=== PATIENT | female | born 1975 | race Caucasian/White ===

== ENCOUNTER → 2020-06-21 | Outpatient (CLI) | payer BC, MEDICARE ==
[2020-06-21 13:05] VITALS: BP 122/85; PULSE 84; RESP 16; TEMP 98.5
--- NOTE | 2020-06-21 13:25 | P.GSHP ---
History of Present Illness H&P Date: 06/21/20 Chief Complaint: fullness right breast Carlota is a 44 year old white female with a fullness in her right breast which she has noticed since May 2020. She subsequently had a bilateral diagnostic mammogram which was benign BIRADS 2. Therefore was has not changed. She states it is painful. The pain is described as aching in nature. It is not cyclical, and nothing makes it better or worse. She is not complaining of any nipple discharge or skin changes. She had a breast reduction at the age of 15. Is not complaining of any infection or trauma the breast. Family history: maternal grandmother: ovarian cancer maternal grandfather: lung cancer paternal grandmother: breast cancer paternal grandfather: skin cancer metastatic paternal aunt: pancreatic cancer paternal aunt: colon cancer maternal cousin: cervical cancer Hormonal history: menarche: 12 , 4 miscarriages, breast fed: no, age at first live : 23 hysterectomy at 29 left one ovary, done for pre cancer on conization she is told she is perimenopausal BCP: depo hormones: none Surgical history: Hysterectomy 1 ovary removed Tubal ligation Novasure prior to hysterectomy Medical History: depression Social History: Nicotine: 1/2 PPD alcohol: occasional drugs: Marijuana occasional - Constitutional Constitutional: Reports sweats - EENT Eyes: denies blurred vision, denies pain Ears: deny: decreased hearing, tinnitus Ears, nose, mouth and throat: Denies headache, Denies sore throat - Breasts Breasts: bilateral: as per HPI - Cardiovascular Cardiovascular: Denies chest pain, Denies shortness of breath - Respiratory Respiratory: Denies cough, Denies 7 - Gastrointestinal Gastrointestinal: Denies abdominal pain, Denies diarrhea, Denies nausea, Denies vomiting - Genitourinary (Female) Genitourinary: Denies dysuria, Denies hematuria - Menstruation Menstruation: Reports post hysterectomy - Musculoskeletal Comment: 9 knee surgeries - Integumentary Integumentary: Reports pruritus - Neurological Neurological: Denies numbness, Denies weakness - Psychiatric Psychiatric: Reports depression - Endocrine Endocrine: Reports fatigue, Reports weight change - Hematologic/Lymphatic Comment: none - Allergic/Immunologic Allergic/Immunologic: Reports seasonal allergies Past Medical History Past Medical History: Asthma Additional Past Medical History / Comment(s): depression History of Any Multi-Drug Resistant Organisms: None Reported Past Surgical History: Breast Surgery, Cholecystectomy, Hysterectomy, Orthopedic Surgery Additional Past Surgical History / Comment(s): colonoscopy Past Anesthesia/Blood Transfusion Reactions: No Reported Reaction Past Psychological History: Depression Smoking Status: Current every day smoker Past Alcohol Use History: None Reported Past Drug Use History: None Reported Medications and Allergies Home Medications Medication Instructions Recorded Confirmed Type DULoxetine HCL [Cymbalta] 60 mg PO DAILY 09/27/14 06/21/20 History Dextroamphetamine/Amphetamine 25 mg PO QAM 09/27/14 06/21/20 History [Adderall Xr] Allergies Allergy/AdvReac Type Severity Reaction Status Date / Time erythromycin base AdvReac Rash/Hives Verified 06/21/20 12:54 Surgical - Exam Vital Signs Temp Pulse Resp BP Pulse Ox 98.5 F 84 16 122/85 97 06/21/20 12:56 06/21/20 12:56 06/21/20 12:56 06/21/20 12:56 06/21/20 12:56 BMI 28.4 - General well developed, well nourished, no distress - Eyes normal ocular movement - ENT no hearing loss - Neck no masses, trachea midline - Respiratory normal respiratory effort, clear to auscultation - Cardiovascular Rhythm: regular Heart Sounds: normal: S1, S2 - Abdomen Abdomen: soft, non tender, no guarding, no rigid, no rebound - Integumentary normal turgor - Neurologic no disoriented, no combative - Musculoskeletal normal gait, normal posture - Psychiatric oriented to time, oriented to person, oriented to place, speech is normal, memory intact breast exam: BRA: 38DD inspection: Well-healed scars bilaterally from reduction mammoplasties Palpation: Right breast: Multiple positional exam fibrocystic changes, some increased fu llness in the lateral inferior aspect which is somewhat nodular in nature, this appears to be consistent with lipomatous tissue and fibrocystic breast changes Right axilla: No adenopathy of concern Left breast: Well-healed scars from prior mammoplasty fibrocystic changes, no dominant masses or nodules of concern Left axilla: No adenopathy of concern Results mammogram reviewed Assessment and Plan Assessment: Impression: 1. Fibrocystic breast changes bilateral 2. Fullness of the right breast inferior lateral aspect 3. Depression 4. Prior surgery right knee 5. Strong family history of cancer 6. Perimenopausal/hot flashes Plan: 1. Targeted ultrasound of palpable area in the right breast 2. Follow-up after targeted ultrasound if nothing is seen for biopsy of palpable lesion CC: Dr. Lewis Gamboa encounter 30 minutes, > 50% of time in planning and counselling
--- NOTE | 2020-06-21 14:01 | P.PN ---
Progress Note - Text Progress Note Date: 06/21/20 Carlota underwent a targeted ultrasound of the area of concern in the right breast. This revealed a lesion most consistent with a lipoma. After discussion with radiology the option of ultrasound-guided core biopsy versus six-month follow-up was given. The patient wishes a core biopsy to be obtained secondary to her strong family history of cancer. Risk and benefits of the procedure are discussed with the patient. She understands and wishes to proceed.
--- NOTE | 2020-06-22 10:15 | USB ---
Reason for exam: clinical finding. Indicated problem(s): palpable abnormality in the right breast. Physical Findings: Breast exam performed by Dr. Forrest. US Breast Limited RT Right limited breast ultrasound including focal area of concern, retroareolar and axilla demonstrates a 0.7 x 0.4 x 0.7cm hyperechoic lesion at 8 o'clock. These results were verbally communicated with the patient and result sheet given to the patient on 06/21/20. ASSESSMENT: Probably benign, BI-RAD 3 RECOMMENDATION: Ultrasound of the right breast in 6 months.
== END | disposition home or self-care (01) ==
LOC: WWCWWP 12:49
PROVIDERS: ATTEND Surgery
DX: R92.8 Other abnormal and inconclusive findings on diagnostic imaging of breast (principal); N64.4 Mastodynia

== ENCOUNTER → 2020-07-04 | Day surgery (SDC) | payer BC, MEDICARE, OTHER ==
[2020-07-04 09:54] VITALS: RESP 12
[2020-07-04 11:12] VITALS: BP 121/82; PULSE 72; TEMP 98
--- NOTE | 2020-07-04 13:31 | USB ---
EXAMINATION TYPE: US biopsy breast VAD RT DATE OF EXAM: 07/04/2020 CLINICAL HISTORY: N63, Breast lump/mass. TECHNIQUE: Ultrasound guided vaccuum assisted core biopsy of right breast. COMPARISON: 06/21/2020 FINDINGS: The ultrasound guided core biopsy procedure was explained to the patient. The risks, benefits, alternatives were discussed. An informed consent was then obtained. Timeout was performed. The patient was placed in supine positioning for imaging and for the procedure. The overlying skin was prepped with betadine and sterilely draped in usual sterile fashion. Lidocaine 1% was used as anesthetic into the skin and deeper breast tissue up to area of concern in the breast. A small skin marquise was made with surgical scalpel. Under ultrasound guidance, a 12-gauge vacuum assisted biopsy device was used to obtain 3 core samples. A biopsy clip was left in lesion. A coil clip was utilized. Good hemostasis was obtained with direct pressure. Discharge instructions were discussed with the patient. The patient will follow up with the referring physician for results. Postprocedure mammogram: The patient was transferred to mammography for physician ordered post procedure mammogram for clip placement verification. The clip is in the expected region of the biopsy. The patient tolerated the procedure well without any immediate complication. The patient was discharged to home in stable condition. IMPRESSION: 1. Successful ultrasound guided biopsy right breast. Recommendations: 1. Recommendations are pending pathology results. Pathology Results: Benign RIGHT BREAST, ULTRASOUND GUIDED CORE BIOPSY: Angiolipoma. Recommendation Follow up ultrasound of the right breast in 6 months. CARLOS
--- NOTE | 2020-07-04 13:31 | MM ---
EXAMINATION TYPE: US biopsy breast VAD RT DATE OF EXAM: 07/04/2020 CLINICAL HISTORY: N63, Breast lump/mass. TECHNIQUE: Ultrasound guided vaccuum assisted core biopsy of right breast. COMPARISON: 06/21/2020 FINDINGS: The ultrasound guided core biopsy procedure was explained to the patient. The risks, benef its, alternatives were discussed. An informed consent was then obtained. Timeout was performed. The patient was placed in supine positioning for imaging and for the procedure. The overlying skin w as prepped with betadine and sterilely draped in usual sterile fashion. Lidocaine 1% was used as ane sthetic into the skin and deeper breast tissue up to area of concern in the breast. A small skin penelope k was made with surgical scalpel. Under ultrasound guidance, a 12-gauge vacuum assisted biopsy device was used to obtain 3 core samples . A biopsy clip was left in lesion. A coil clip was utilized. Good hemostasis was obtained with direct pressure. Discharge instructions were discussed with the clark chow. The patient will follow up with the referring physician for results. Postprocedure mammogram: The patient was transferred to mammography for physician ordered post proced ure mammogram for clip placement verification. The clip is in the expected region of the biopsy. The patient tolerated the procedure well without any immediate complication. The patient was dischar ged to home in stable condition. IMPRESSION: 1. Successful ultrasound guided biopsy right breast. Recommendations: 1. Recommendations are pending pathology results.
== END ==
LOC: RADUSWWP 09:23
PROVIDERS: ATTEND Surgery
DX: D17.1 Benign lipomatous neoplasm of skin and subcutaneous tissue of trunk (principal)
CPT/HCPCS: 88305; 77065; 19083; A4648; J2001

== ENCOUNTER → 2020-07-13 | Outpatient (CLI) | payer BC, MEDICARE ==
[2020-07-13 13:10] VITALS: BP 130/90; PULSE 113; RESP 18; TEMP 98.7
--- NOTE | 2020-07-13 13:25 | P.PN ---
Subjective Progress Note Date: 07/13/20 Principal diagnosis: angiolipoma Carlota is a 44 year old white female status post a core biopsy of the right breast on 07-04-20 which revealed an angiolipoma. She tolerated the procedure without difficulty. She stated at times that the area is tender and increased slightly in size. Objective - Vital Signs Vital signs: Vital Signs Temp 98.7 F 07/13/20 13:08 Pulse 113 H 07/13/20 13:08 Resp 18 07/13/20 13:08 BP 130/90 07/13/20 13:08 Pulse Ox 95 07/13/20 13:08 Intake & Output 07/12/20 07/13/20 07/13/20 18:59 06:59 18:59 Weight 62.596 kg - Exam BMI 28.8 - Constitutional General appearance: Present: average body habitus - EENT Eyes: Present: EOMI ENT: Present: hearing grossly normal - Neck Neck: Present: normal ROM - Respiratory Respiratory: bilateral: CTA - Cardiovascular Rhythm: regular Heart sounds: normal: S1, S2 - Integumentary Integumentary Comment(s): Mild ecchymosis right breast biopsy site, no evidence of hematoma or infection Assessment and Plan Assessment: Impression: 1. Angiolipoma right breast Plan: 1. follow up examination in six months 2. call sooner if any questions We have talked about the natural history of lipomas. At this time she is going to be followed conservatively. If this begins to grow or becomes tender she will consider excision. CC: DR. Gamboa encounter 10 minutes > 50% of time in planning and counselling
== END | disposition home or self-care (01) ==
LOC: WWCWWP 12:47
PROVIDERS: ATTEND Surgery
DX: Z53.9 Procedure and treatment not carried out, unspecified reason (principal)

== ENCOUNTER → 2021-02-26 | Outpatient (CLI) | payer BC, MEDICARE, OTHER ==
--- NOTE | 2021-02-26 08:28 | USB ---
EXAMINATION TYPE: US breast limited RT DATE OF EXAM: 02/26/2021 COMPARISON: 06/21/2020, 07/04/2020 CLINICAL HISTORY: R92.8, Abnormal mammogram. Findings: The right breast was scanned with ultrasound from 6-9 o'clock and in the retroareolar region and axil power tail. A hyperechoic focus is noted at 8:00 in the region of the previously biopsied mass, likely a biopsy clip. The hyperechoic masses no longer seen. IMPRESSION: No sonographic evidence for malignancy. BI-RADS 2, benign. Recommendation: Bilateral mammogram is recommended in May 2021.
== END | disposition home or self-care (01) ==
LOC: RADUSWWP 07:36
PROVIDERS: ATTEND Surgery
DX: R92.8 Other abnormal and inconclusive findings on diagnostic imaging of breast (principal)

== ENCOUNTER → 2021-03-08 | Outpatient (CLI) | payer BC, MEDICARE ==
[2021-03-08 13:41] VITALS: BP 119/86; PULSE 94; RESP 18; TEMP 98.1
--- NOTE | 2021-03-08 13:59 | P.PN ---
Subjective Progress Note Date: 03/08/21 Principal diagnosis: fibrocystic breast changes Carlota is a 45 year old white female with a fullness in her right breast which she has noticed since May 2020. She subsequently had a bilateral diagnostic mammogram which was benign BIRADS 2. She states it is painful. The pain is described as aching in nature. It is not cyclical, and nothing makes it better or worse. She is not complaining of any nipple discharge or skin changes. She had a breast reduction at the age of 15. Is not complaining of any infection or trauma the breast. She underwent ultrasound-guided core biopsy of the right breast and [id number] which revealed an angiolipoma. Hysterectomy was removed in 2080 ovary was removed. The patient has had blood tests done showing that she is premenopausal at this time. When she has hot flashes she has increased breast discomfort. He states that she has the breast pain she often also gets nodularity which breaks out on her neck on both sides. This resolves when the hot flashes and breast pain resolved. Otherwise is not complaining of any problems with her breasts. She did have a right breast ultrasound in 221. This revealed masses of concern. Repeat bilateral mammogram in May 2021 was recommended. Caffiene: 1 cup coffee/day nicotine: 1/2 PPD chocolate: none hormones: none Family history: maternal grandmother: ovarian cancer maternal grandfather: lung cancer paternal grandmother: breast cancer paternal grandfather: skin cancer metastatic paternal aunt: pancreatic cancer paternal aunt: colon cancer maternal cousin: cervical cancer Hormonal history: menarche: 12 , 4 miscarriages, breast fed: no, age at first live : 23 hysterectomy at 29 left one ovary, done for pre cancer on conization she is told she is perimenopausal BCP: depo hormones: none Surgical history: Hysterectomy 1 ovary removed Tubal ligation Novasure prior to hysterectomy Medical History: depression Social History: Nicotine: 1/2 PPD alcohol: occasional drugs: Marijuana occasional - Constitutional Constitutional: Reports sweats - EENT Eyes: denies blurred vision, denies pain Ears: deny: decreased hearing, tinnitus Ears, nose, mouth and throat: Denies headache, Denies sore throat - Breasts Breasts: bilateral: as per HPI - Cardiovascular Cardiovascular: Denies chest pain, Denies shortness of breath - Respiratory Respiratory: Denies cough - Gastrointestinal Gastrointestinal: Denies abdominal pain, Denies diarrhea, Denies nausea, Denies vomiting - Genitourinary (Female) Genitourinary: Denies dysuria, Denies hematuria - Menstruation Menstruation: Reports post hysterectomy - Musculoskeletal Comment: 9 knee surgeries - Integumentary Integumentary: Reports pruritus - Neurological Neurological: Denies numbness, Denies weakness - Psychiatric Psychiatric: Reports depression - Endocrine Endocrine: Reports fatigue, Reports weight change - Hematologic/Lymphatic Comment: none - Allergic/Immunologic Allergic/Immunologic: Reports seasonal allergies Objective - Vital Signs Vital signs: Vital Signs Temp 98.1 F 03/08/21 13:36 Pulse 94 03/08/21 13:36 Resp 18 03/08/21 13:36 BP 119/86 03/08/21 13:36 Pulse Ox Intake & Output 03/07/21 03/08/21 03/08/21 18:59 06:59 18:59 Weight 60.972 kg - Constitutional General appearance: Present: average body habitus - EENT Eyes: Present: EOMI ENT: Present: hearing grossly normal - Neck Neck: Present: normal ROM - Respiratory Respiratory: bilateral: CTA - Cardiovascular Rhythm: regular Heart sounds: normal: S1, S2 - Gastrointestinal General gastrointestinal: Present: soft - Integumentary Integumentary: Present: normal turgor - Musculoskeletal Musculoskeletal: Present: gait normal - Psychiatric Psychiatric: Present: A&O x's 3, appropriate affect, intact judgment & insight - Additional findings Additional findings: Breast Exam: BRA: 38DD inspection: Well-healed scars bilateral from prior reduction mammoplasty/grade 1 ptosis Palpation: Right breast: Multi-positional exam fibrocystic breast changes, scar tissue noted in the lateral aspect of the inferior portion of the scar but no dominant masses or nodules to warrant biopsy Right axilla: No adenopathy of concern Left breast: Multi-positional exam fibrocystic changes no dominant masses or nodules of concern Left axilla: No adenopathy of concern Examination of the neck reveals some folliculitis on the anterior border of sternocleidomastoid bilaterally which patient states occurs when she has hot flashes Assessment and Plan Assessment: Impression: 1. Depression 2. Bilateral fibrocystic breast changes 3. Cyclic cold-type breast pain 4. Perimenopausal 5. Strong family history of cancer Plan: 1. Repeat bilateral mammogram in May with physician exam at that time 2. appointment with Dr. Torres regarding pap smear 3. Live style modification decreasing caffeine intake and stopping smoking patient understands and will consider these Cc: Dr. Gamboa
== END ==
LOC: WWCWWP 12:52
PROVIDERS: ATTEND Surgery
DX: N60.11 Diffuse cystic mastopathy of right breast (principal); N60.12 Diffuse cystic mastopathy of left breast; F32.9 Major depressive disorder, single episode, unspecified; Z78.0 Asymptomatic menopausal state; F17.210 Nicotine dependence, cigarettes, uncomplicated; Z80.3 Family history of malignant neoplasm of breast; Z88.1 Allergy status to other antibiotic agents

== ENCOUNTER → 2021-04-23 | Outpatient (CLI) | payer BC, MEDICARE, OTHER ==
[2021-04-23 08:40] VITALS: BP 126/86; PULSE 86; RESP 18; TEMP 98.6
--- NOTE | 2021-04-23 09:36 | P.HPOB ---
History of Present Illness H&P Date: 04/23/21 Chief Complaint: The patient is here for her routine gynecologic exam. This is a 45-year-old 041 with an LMP of 2007. The patient is status post [facility] with unilateral oophorectomy for benign reasons. The patient is here to establish with this office. She is wondering if emotional changes, cold sweats, breast cyst and skin changes are related to the menopausal change. She underwent a right breast biopsy last June with which showed an angiolipoma. She has been experiencing variable cold sweats over the past 2 years. She states she had thyroid function testing about 6 months ago and was told that it was normal. She is otherwise without complaints. It has been about 4 years since her last pelvic exam. Review of Systems The patient's weight has been stable over the last year. She denies respiratory, cardiac, or G.I. problems. Past Medical History Past Medical History: Asthma Additional Past Medical History / Comment(s): depression, ADHD. 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 Conization of the cervix in 1998 for dysplasia. History of Any Multi-Drug Resistant Organisms: None Reported Past Surgical History: Breast Surgery, Cholecystectomy, Hysterectomy, Orthopedic Surgery Additional Past Surgical History / Comment(s): colonoscopy . knee surgery x9. Conization of the cervix in 1998. Laparoscopic assisted vaginal hysterectomy with unilateral oophorectomy 2007. Past Anesthesia/Blood Transfusion Reactions: No Reported Reaction Past Psychological History: ADD/ADHD, Anxiety, Depression Smoking Status: Current every day smoker (Half pack per day) Past Alcohol Use History: Occasional (1-2 per month) Past Drug Use History: Marijuana Additional Drug Use History / Comment(s): occasional marijuana use Additional History: She has been since 2011 and this is her second marriage. 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 - Past Family History Mother Family Medical History: COPD, Hypertension Additional Family Medical History / Comment(s): Maternal grandmother had ovarian cancer. A cousin had cervical cancer. Father Family Medical History: Congestive Heart Failure (CHF) Additional Family Medical History / Comment(s): Paternal grandmother had breast cancer. Paternal grandfather had lung and skin cancer. Medications and Allergies Home Medications Medication Instructions Recorded Confirmed Type DULoxetine HCL [Cymbalta] 90 mg PO HS 09/27/14 04/23/21 History Dextroamphetamine/Amphetamine 30 mg PO QAM 09/27/14 04/23/21 History [Adderall Xr] Albuterol Sulfate [Proair Hfa] 1 - 2 puff INHALATION Q6HR PRN 04/23/21 04/23/21 History Cephalexin [Keflex] 500 mg PO Q6HR 04/23/21 04/23/21 History Allergies Allergy/AdvReac Type Severity Reaction Status Date / Time erythromycin base AdvReac Rash/Hives Verified 04/23/21 08:40 Exam Vital Signs Temp Pulse Resp BP Pulse Ox 04/23/21 08:38 98.6 F 86 18 126/86 99 Intake and Output 04/22/21 04/23/21 04/23/21 22:59 06:59 14:59 Other: Weight 60.328 kg Height 4 feet 11 inches, weight 138 pounds, BMI 26.9. This is a well-developed well-nourished white female who is alert and oriented times 3 in no acute distress. HEENT: Within normal limits. NECK: Supple without mass or thyromegaly. CHEST AND LUNGS: Clear to auscultation. HEART: Regular rate and rhythm. BREASTS: Are without mass or discharge. The area of her right breast biopsy at the 9 o'clock position reveals a slight thickening when she is upright, but no discrete masses noted. AXILLARY EXAM: Negative for adenopathy. BACK: Negative for CVA tenderness. ABDOMEN: Soft, nontender, without palpable masses. PELVIC EXAM: External genitalia appears normal. Vagina appears normal without significant atrophy. There is no evidence of prolapse. Bimanual examination is negative for mass or tenderness. RECTAL EXAM: Rectovaginal exam is negative for mass or tenderness and is negative for occult blood. EXTREMITIES: Nontender. IMPRESSION: 1. 45-year-old female who is status post [facility] with unilateral oophorectomy for benign reasons, with normal gynecologic exam. 2. Possible perimenopause with symptoms including cold sweats and emotional changes. PLAN: 1. Pap smears have been discontinued. 2. Self breast awareness. We have reviewed symptoms associated with inflammatory breast cancer. 3. Screening mammogram is scheduled for next month and the patient has an order slip for this through her PCP or breast Dr., Dr. Dayton Patrick. 4. Osteoporosis prevention was discussed. I have stressed the importance of adequate calcium, vitamin D and regular exercise. Recommended amounts of calcium and vitamin D were also discussed. 5. Blood tests to be drawn include estradiol and FSH. The order slip was given to the patient for this. 6. She has completed her Covid vaccination series. 7. We have discussed how her symptoms may or may not be related to the menopausal change. We will avoid hormone replacement therapy if possible because of her family history of breast cancer. We have also discussed conservative measures for menopausal symptoms. We can also consider having her doctor change her depression medication to see if other medications would be helpful for certain symptoms if emotional changes are related to vasomotor symptoms. 8. She was advised to return in one year for her annual well woman exam and as needed.
== END ==
LOC: WWCWWP 08:29
PROVIDERS: ATTEND Obstetrics & Gynecology
DX: Z01.419 Encounter for gynecological examination (general) (routine) without abnormal findings (principal); J45.909 Unspecified asthma, uncomplicated; F32.9 Major depressive disorder, single episode, unspecified; F90.9 Attention-deficit hyperactivity disorder, unspecified type; F17.210 Nicotine dependence, cigarettes, uncomplicated; F41.9 Anxiety disorder, unspecified; Z88.1 Allergy status to other antibiotic agents; Z90.721 Acquired absence of ovaries, unilateral; Z90.711 Acquired absence of uterus with remaining cervical stump

== ENCOUNTER → 2021-06-03 | Outpatient (CLI) | payer BC, MEDICARE ==
--- NOTE | 2021-06-03 15:02 | MM ---
Reason for exam: additional evaluation requested from prior study. Last mammogram was performed 11 months ago. History: Family history of breast cancer in paternal grandmother. Benign US biopsy breast VAD RT of the right breast, July 04, 2020. Reductions of both breasts, 1990. Took hormonal contraceptives for 8 years. Physical Findings: Nurse did not find any significant physical abnormalities on exam. MG Diagnostic Mammo w CAD ONOFRE Bilateral CC and MLO view(s) were taken. Prior study comparison: July 04, 2020, right breast MG diagnostic mammo RT wo CAD. Previous mammotome biopsy in the right breast. Focal asymmetry right breast. No significant new findings when compared with previous films. These results were verbally communicated with the patient and result sheet given to the patient on 06/03/21. ASSESSMENT: Benign, BI-RAD 2 RECOMMENDATION: Routine screening mammogram of both breasts in 1 year.
== END | disposition home or self-care (01) ==
LOC: RADMAMWWP 14:12
PROVIDERS: ATTEND Surgery
DX: R92.8 Other abnormal and inconclusive findings on diagnostic imaging of breast (principal); Z80.3 Family history of malignant neoplasm of breast; Z79.3 Long term (current) use of hormonal contraceptives
CPT/HCPCS: 77066

== ENCOUNTER → 2021-06-07 | Outpatient (CLI) | payer BC, MEDICARE ==
[2021-06-07 09:27] VITALS: BP 134/75; PULSE 95; RESP 16; TEMP 98.3
--- NOTE | 2021-06-07 09:51 | P.PN ---
Subjective Progress Note Date: 06/07/21 Principal diagnosis: Breast pain Carlota is a 45-year-old white female who was seen initially in March 2021 with a complaint at that time of a fullness in her right lateral breast as well as aching discomfort in both breast. She has had a hysterectomy with one ovary removed and there was some concern at that time that she was premenopausal and the discomfort was related to hormonal changes. She states she has recently been seen by Dr. Torres repeat blood work and did not feel that she was premenopausal at this time. She has hot flashes several times a day, they have not gotten more frequent. Additionally she has been recently diagnosed with hydroadenitis in these nod ularity areas seem to come and go. However she continues to have persistent fullness in the lateral aspect of the right breast. She has not had any fever or chills. Of significance is the fact that the patient had bilateral breast reduction at age 15. Her bra size at this time is 38D, it was 38DD. She had ultrasound-guided core biopsy of the right breast on 1020 [id number] which revealed an angiolipoma. She had a bilateral mammogram performed on 926 661 which was benign BIRADS 2 Hysterectomy was performed in 2007 and 1 ovary was removed. Caffiene: 1 cup coffee/day nicotine: 1/2 PPD down to 4/day chocolate: none hormones: none Family history: maternal grandmother: ovarian cancer maternal grandfather: lung cancer paternal grandmother: breast cancer paternal grandfather: skin cancer metastatic paternal aunt: pancreatic cancer paternal aunt: colon cancer maternal cousin: cervical cancer Hormonal history: menarche: 12 , 4 miscarriages, breast fed: no, age at first live : 23 hysterectomy at 29 left one ovary, done for pre cancer on conization she is told she is ? perimenopausal BCP: depo in the past hormones: none Surgical history: Hysterectomy 1 ovary removed Tubal ligation Novasure prior to hysterectomy Medical History: depression Social History: Nicotine: 1/2 PPD down to 4 cigarettes/day alcohol: occasional drugs: Marijuana occasional - Constitutional Constitutional: Reports sweats - EENT Eyes: denies blurred vision, denies pain Ears: deny: decreased hearing, tinnitus Ears, nose, mouth and throat: Denies headache, Denies sore throat - Breasts Breasts: bilateral: as per HPI - Cardiovascular Cardiovascular: Denies chest pain, Denies shortness of breath - Respiratory Respiratory: Denies cough - Gastrointestinal Gastrointestinal: Denies abdominal pain, Denies diarrhea, Denies nausea, Denies vomiting - Genitourinary (Female) Genitourinary: Denies dysuria, Denies hematuria - Menstruation Menstruation: Reports post hysterectomy - Musculoskeletal Comment: 9 knee surgeries - Integumentary Integumentary: Reports pruritus - Neurological Neurological: Denies numbness, Denies weakness - Psychiatric Psychiatric: Reports depression - Endocrine Endocrine: Reports fatigue, Reports weight change - Hematologic/Lymphatic Comment: none - Allergic/Immunologic Allergic/Immunologic: Reports seasonal allergies Objective - Vital Signs Vital signs: Vital Signs Temp 98.3 F 06/07/21 09:18 Pulse 95 06/07/21 09:18 Resp 16 06/07/21 09:18 BP 134/75 06/07/21 09:18 Pulse Ox 98 06/07/21 09:18 Intake & Output 06/06/21 06/07/21 06/07/21 18:59 06:59 18:59 Weight 61.689 kg - Exam BMI 27.5 - Constitutional General appearance: Present: cooperative - EENT Eyes: Present: EOMI ENT: Present: hearing grossly normal - Neck Neck: Present: normal ROM - Respiratory Respiratory: bilateral: CTA - Cardiovascular Rhythm: regular Heart sounds: normal: S1, S2 - Integumentary Integumentary: Present: normal turgor - Musculoskeletal Musculoskeletal: Present: gait normal - Psychiatric Psychiatric: Present: A&O x's 3, appropriate affect, intact judgment & insight - Additional findings Additional findings: Breast Exam: BRA: 38D inspection: Well-healed scars bilateral, hidradenitis right axilla no active infection at this time, bilateral grade 2 ptosis Palpation: Right breast: Multiple positional exam fibrocystic changes, scar tissue lateral aspect no dominant masses or nodules of concern Right axilla: No adenopathy of concern Left breast: Multi-positional exam fibrocystic changes, no dominant masses or nodules of concern Left axilla: No adenopathy of concern Assessment and Plan Assessment: Impression: 1. Bilateral fibrocystic breast changes 2. Mastodynia bilateral 3. Hidradenitis no active infection right axilla 4. Depression 5. Strong family history of cancer Plan: 1. Ultrasound of lateral aspect of right breast. Patient feels fullness this is believed to represent scar tissue but we'll confirm that nothing is of concern on ultrasound 2. Continue close surveillance 3. Recent bilateral mammogram benign BIRADS 2, repeat in 1 year 4. Continue to encourage lifestyle modification stopping caffeine intake and smoking CC: Dr. Gamboa
== END ==
LOC: WWCWWP 09:12
PROVIDERS: ATTEND Surgery
DX: N60.11 Diffuse cystic mastopathy of right breast (principal); N60.12 Diffuse cystic mastopathy of left breast; Z80.3 Family history of malignant neoplasm of breast; Z80.1 Family history of malignant neoplasm of trachea, bronchus and lung; L73.2 Hidradenitis suppurativa; F32.9 Major depressive disorder, single episode, unspecified; F17.200 Nicotine dependence, unspecified, uncomplicated; Z88.1 Allergy status to other antibiotic agents

== ENCOUNTER → 2021-08-05 | Outpatient (CLI) | payer BC, MEDICARE ==
--- NOTE | 2021-08-05 09:36 | USB ---
Reason for exam: clinical finding. History: Family history of breast cancer in paternal grandmother. Benign US biopsy breast VAD RT of the right breast, July 04, 2020. Reductions of both breasts, 1990. Took hormonal contraceptives for 8 years. Indicated problem(s): palpable abnormality in the right breast. Physical Findings: Nurse Summary: right breast palpable lateral aspect 1 x 1.4cm, movable, soft (nurse ts). US Breast Limited RT Technologist: Radha Thomas Right limited breast ultrasound including focal area of concern, retroareolar and axilla demonstrates a 0.6 x 0.6 x.3cm hyperechoic lesion at 9 o'clock consistent with lipoma. These results were verbally communicated with the patient and result sheet given to the patient on 08/05/21. ASSESSMENT: Benign, BI-RAD 2 RECOMMENDATION: Routine screening mammogram of both breasts in 1 year. Manage patient on a clinical basis.
== END | disposition home or self-care (01) ==
LOC: RADUSWWP 07:55
PROVIDERS: ATTEND Surgery
DX: R92.8 Other abnormal and inconclusive findings on diagnostic imaging of breast (principal); Z80.3 Family history of malignant neoplasm of breast

== ENCOUNTER → 2023-02-17 | Outpatient (CLI) | payer MEDICARE, OTHER ==
[2023-02-17 09:41] VITALS: BP 133/87; PULSE 97; RESP 17; TEMP 98.4
--- NOTE | 2023-02-17 10:04 | P.HPOB ---
History of Present Illness H&P Date: 02/17/23 Chief Complaint: The patient is here for her routine gynecologic exam and ma mmogram. This is a 47-year-old with an LMP of 2007. She is status post [facility] with unilateral oophorectomy for benign reasons. She has been feeling a right breast lump for about 3 months. This is similar to the lump that she noticed in 2019 and had a right breast biopsy showing an angiolipoma. She states it is about the size of a golf ball and is soft. She has been experiencing some hot flashes. She is otherwise without gynecologic complaints. She states she underwent cancer genetics testing through [facility] and this was negative except for 1 marker of undetermined significance, per the patient. Review of Systems She is getting about 3 pounds over the past 2 years. She denies respiratory, cardiac, or GI problems. Past Medical History Past Medical History: Asthma Additional Past Medical History / Comment(s): depression, ADHD. PAST UNIT TENDER HISTORY: She has no history of STDs. Conization of the cervix in 1998 for dysplasia. BRCA negative per pt. History of Any Multi-Drug Resistant Organisms: None Reported Past Surgical History: Breast Surgery, Cholecystectomy, Hysterectomy, Orthopedic Surgery Additional Past Surgical History / Comment(s): colonoscopy . knee surgery x9. Conization of the cervix in 1998. Laparoscopic assisted vaginal hysterectomy with unilateral oophorectomy 2007. Right breast biopsy in 2019(angiolipoma). Past Anesthesia/Blood Transfusion Reactions: No Reported Reaction Past Psychological History: ADD/ADHD, Anxiety, Depression Smoking Status: Former smoker Past Alcohol Use History: Occasional (2-3 per month.) Additional Past Alcohol Use History / Comment(s): Quit smoking in 2021 after her mother was diagnosed with lung cancer. Past Drug Use History: Marijuana Additional Drug Use History / Comment(s): occasional marijuana use Additional History: She has been since 2011 and this is her second marriage. 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 - Past Family History Mother Family Medical History: COPD, Hypertension Additional Family Medical History / Comment(s): Lung cancer. Maternal grandmother had ovarian cancer. A cousin had cervical cancer. Father Family Medical History: Congestive Heart Failure (CHF) Additional Family Medical History / Comment(s): Paternal grandmother had breast cancer. Paternal grandfather had lung and skin cancer. Medications and Allergies Home Medications Medication Instructions Recorded Confirmed Type DULoxetine HCL [Cymbalta] 90 mg PO HS 09/27/14 02/17/23 History Dextroamphetamine/Amphetamine 30 mg PO QAM 09/27/14 02/17/23 History [Adderall Xr] Albuterol Sulfate [Proair Hfa] 1 - 2 puff INHALATION Q6HR PRN 04/23/21 02/17/23 History Allergies Allergy/AdvReac Type Severity Reaction Status Date / Time erythromycin base AdvReac Rash/Hives Verified 02/17/23 09:20 Exam Vital Signs Temp Pulse Resp BP Pulse Ox 02/17/23 09:21 98.4 F 97 17 133/87 100 Intake and Output 02/16/23 02/17/23 02/17/23 22:59 06:59 14:59 Other: Weight 63.957 kg Height 4 feet 11 inches, weight 141 pounds, BMI 28.5. This is a well-developed well-nourished white female who is alert and oriented times 3 in no acute distress. HEENT: Within normal limits. NECK: Supple without mass or thyromegaly. CHEST AND LUNGS: Clear to auscultation. HEART: Regular rate and rhythm. BREASTS: The right breast has a soft lump measuring 2.5 x 2.5 cm at the 8 o'clock position. This is soft and nontender. There are no other palpable masses or tenderness. There is no nipple discharge. Nipples appear normal. AXILLARY EXAM: Negative for adenopathy. BACK: Negative for CVA tenderness. ABDOMEN: Soft, nontender, without palpable masses. PELVIC EXAM: External genitalia appears normal. Vagina appears normal. There is no evidence of prolapse. Bimanual examination is negative for mass or tenderness. RECTAL EXAM: Rectovaginal exam is negative for mass or tenderness and is negative for occult blood. EXTREMITIES: Nontender. IMPRESSION: 1. 47-year-old perimenopausal female status post [facility] with unilateral oophorectomy for benign reasons, with normal pelvic exam. 2. Right breast mass measuring 2.5 x 2.5 cm which is soft and has a consistency of a lipoma. PLAN: 1. Pap smears have been discontinued. 2. Self breast awareness was discussed with the patient. We have also discussed symptoms associated with inflammatory breast cancer. 3. Diagnostic mammogram will be done today. If she needs to see a breast surgeon, she will be referred back to Dr. Dayton Patrick, who saw her in the past for the angiolipoma. 4. Osteoporosis prevention was discussed. I have stressed the importance of adequate calcium, vitamin D and regular exercise. Recommended amounts of calcium and vitamin D were also discussed. 5. She will bring me the results to her genetic cancer testing. 6. She was advised to return in one year for her annual well woman exam.
--- NOTE | 2023-02-17 10:13 | MM ---
Reason for Exam: Clinical finding. Last mammogram was performed 1 year(s) and 9 month(s) ago. Patient History: Menarche at age 13. First Full-Term at age 22. Right ovary removed at age 32. Hysterectomy at age 32. Postmenopausal. Patient used Hormonal Contraceptives for 8 years. 1990, Bilateral Reduction. 07/04/2020, Benign Core Biopsy on the right side. Paternal grandmother had breast cancer. Risk Values: Radha 5 year model risk: 1.1%. NCI Lifetime model risk: 10.2%. Prior Study Comparison: 06/21/2020 Right Diagnostic Ultrasound, [facility]. 07/04/2020 Right Diagnostic Mammogram, [facility]. 02/26/2021 Right Diagnostic Ultrasound, [facility]. 06/03/2021 Bilateral Diagnostic Mammogram, [facility]. 08/05/2021 Right Diagnostic Ultrasound, [facility]. Tissue Density: The breast tissue is heterogeneously dense. This may lower the sensitivity of mammography. Findings: Analyzed By CAD. No new suspicious masses, architectural distortion, or group of suspicious calcifications within either breast. Previous mammotome biopsy within the right breast. Overall Assessment: Incomplete: need additional imaging evaluation, BI-RAD 0 Management: Diagnostic Breast Ultrasound of the right breast. A clinical breast exam by your physician is recommended on an annual basis and results should be correlated with mammographic findings. This exam should not preclude additional follow-up of suspicious palpable abnormalities. Results were given to the patient verbally at the time of exam. Note on Radha scores and lifetime risk: 1. A Radha score greater than 3% is considered moderate risk. If this is the case, consider specialist referral to assess eligibility for a risk reducing agent. If overall lifetime risk for the development of breast cancer is 20% or higher, the patient may qualify for future screening with alternating mammogram and breast MRI. Electronically signed and approved by: Carlos Jiang D.O.
--- NOTE | 2023-02-17 10:47 | USB ---
Reason for Exam: Clinical finding. Patient History: Menarche at age 13. First Full-Term at age 22. Right ovary removed at age 32. Hysterectomy at age 32. Postmenopausal. Patient used Hormonal Contraceptives for 8 years. 1990, Bilateral Reduction. 07/04/2020, Benign Core Biopsy on the right side. Paternal grandmother had breast cancer. Risk Values: Radha 5 year model risk: 1.1%. NCI Lifetime model risk: 10.2%. Technique: Method: Targeted. Prior Study Comparison: 07/04/2020 Right Diagnostic Mammogram, [facility]. 06/03/2021 Bilateral Diagnostic Mammogram, [facility]. Findings: The area of palpable concern of the right breast, the lower outer quadrant of the right breast, the axilla of the right breast and the retroareolar of the right breast were scanned. Targeted ultrasound of the right breast from 6-8 o'clock with additional evaluation the nipple and axilla was performed. Redemonstration of a stable homogeneous hyperechoic lesion consistent with a lipoma at 8:00 9 sagittal nipple measuring 0.6 x 0.4 x 0.6 cm. There is a region of dense breast tissue at site of palpable abnormality at 8:00 9 cm from the nipple measuring up to 2.4 cm. Overall Assessment: Benign, BI-RAD 2 Management: Screening Mammogram of both breasts in 1 year. Clinical management for palpable abnormality. A clinical breast exam by your physician is recommended on an annual basis and results should be correlated with mammographic findings. This exam should not preclude additional follow-up of suspicious palpable abnormalities. Results were given to the patient verbally at the time of exam. Electronically signed and approved by: Carlos Jiang D.O.
--- NOTE | 2023-02-18 11:32 | P.PN ---
Progress Note - Text Progress Note Date: 02/18/23 OUTPATIENT FOLLOW-UP NOTE TEST(S)/RESULTS: Test results from 02/17/2023 include mammogram and right breast ultrasound which was consistent with a lipoma in the right breast in the area of concern. Screening mammogram in 1 year was recommended. METHOD OF NOTIFICATION: The patient was notified by phone. PATIENT COMMENTS: DIAGNOSIS: Benign diagnostic mammogram with right breast ultrasound. Benign lipoma in the right breast. DISCUSSION: We have discussed the nature of lipoma was. Nothing further is needed at this time. She was instructed to call if she is noticing changes such as significant increase in size of the lipoma, if it is feeling harder, or if concerning. She understands that we can ask Dr. Dayton Patrick to evaluate this if there are changes. PLAN: She was advised to return in one year for her annual well woman exam and screening mammogram. Also she can return as needed.
== END ==
LOC: WWCWWP 09:06
PROVIDERS: ATTEND Obstetrics & Gynecology
DX: R92.8 Other abnormal and inconclusive findings on diagnostic imaging of breast (principal); Z01.411 Encounter for gynecological examination (general) (routine) with abnormal findings; J45.909 Unspecified asthma, uncomplicated; Z88.1 Allergy status to other antibiotic agents; Z98.890 Other specified postprocedural states; F17.200 Nicotine dependence, unspecified, uncomplicated
CPT/HCPCS: 77066; 76642; G0279; 77062